=== PATIENT | female | born 2000 | race Caucasian/White ===

== ENCOUNTER 2023-08-06 06:24 | Day surgery (SDC) | payer OTHER, SELFPAY ==
[2023-08-06] VITALS (12 sets, daily range): BP systolic 115–134; BP diastolic 54–74; BMI 36.3
[2023-08-06] MEDS: TYLENOL 1000 MG PO (09:12)
[2023-08-06] MEDS: CELEBREX 200 MG PO (09:12)
[2023-08-06] MEDS: NORMOSOL-R 1000 IV (09:13)
[2023-08-06] MEDS: DILAUDID 0.25 MG IV (15:20)
[2023-08-06] MEDS: ROXICODONE 5 MG PO (16:12)
== END 2023-08-06 16:30 | disposition home or self-care (01) ==
LOC: SDS 06:24
PROVIDERS: ATTENDING PHYSICIAN Student in an Organized Health Care Education/Training Program
DX: T84.84XA Pain due to internal orthopedic prosthetic devices, implants and grafts, initial encounter (principal); Y83.1 Surgical operation with implant of artificial internal device as the cause of abnormal reaction of the patient, or of later complication, without mention of misadventure at the time of the procedure; M65.871 Other synovitis and tenosynovitis, right ankle and foot
CPT/HCPCS: 29898; 20680; 73600; 76000; C1713

== ENCOUNTER → 2024-02-26 05:49 | Outpatient (REF) | payer OTHER, SELFPAY | LOC: EMG 05:49 | PROVIDERS: ATTENDING PHYSICIAN Physician Assistant Surgical; FAMILY PHYSICIAN Family Medicine | DX: R20.2 Paresthesia of skin (principal); R53.1 Weakness | CPT/HCPCS: 95886; 95910 ==

== ENCOUNTER 2024-05-19 19:44 | Emergency (ER) | payer OTHER, SELFPAY ==
[2024-05-19 20:28] LABS: % Basophils 0.5 % (0-2); % Eosinophils 1.4 % (0-6); % Immature Granulocytes 0.5 % (0-0.5); % Lymphocytes 20.7 % (20.5-51.1); % Monocytes 9.4 % (1.7-9.3); % Neutrophils 67.5 % (42.2-75.2); Absolute Basophils 0.1 10^3/uL (0-0.2); Absolute Eosinophils 0.2 10^3/uL (0-0.7); Absolute Immature Granulocytes 0.1 10^3/uL (0-0.05); Absolute Lymphocytes 3.2 10^3/uL (1.2-3.4); Absolute Monocytes 1.4 10^3/uL (0.1-0.6); Absolute Neutrophils 10.3 10^3/uL (1.4-6.5); Hematocrit 44.8 % (39.0-52.0); Hemoglobin 15.2 g/dL (13.0-18.0); Mean Corp Hgb Conc. 33.9 g/dL (33.0-37.0); Mean Corpuscular Hgb 28.1 pg (27.0-31.0); Mean Platelet Volume 10.5 fL (7.4-10.4); Nucleated Red Blood Cells % 0 % (-); Platelet Count 352 10^3/uL (130-400); Red Cell Dist. Width 12.5 % (11.5-14.5); White Blood Cell Count 15.2 10^3/uL (4.8-10.8)
[2024-05-19 20:45] LABS: ALT (SGPT) 24 U/L (0-50); AST (SGOT) 25 U/L (17-59); Albumin 4.8 g/dl (3.5-5.0); Alkaline Phosphatase 74 U/L (38-126); Blood Urea Nitrogen 15 mg/dl (9-20); Calcium 9.5 mg/dl (8.4-10.2); Carbon Dioxide 28 mmol/L (22-30); Chloride 98 mmol/L (98-107); Glucose 76 mg/dl (70-99); Potassium 3.6 mmol/L (3.5-5.1); Sodium 137 mmol/L (135-145); Total Bilirubin 1.1 mg/dl (0.2-1.3); Total Protein 7.7 g/dl (6.3-8.2); eGFR > 60.00
[2024-05-19 20:52] LABS: Troponin I < 0.012 ng/ml
[2024-05-19 21:40] VITALS: BP 133/74
--- NOTE | 2024-05-19 22:47 | ED.GENMED ---
History of Present Illness
General
Chief Complaint: Chest Pain
Source: patient
Exam Limitations: none
Time Seen by Provider: 05/19/24 20:57
Nursing documentation reviewed up to this point in time: agreed with
History of Present Illness
History of Present Illness:
Patient to ED with complaint of chest pain. Symptom started this past week. No aggravating or alleviating factors. No n/v/diaphoresis. Brought self to ED for eval. Pain does not radiate
Past History
Past History
ED Past Medical History: None
Review of Systems
Review of Systems
Allergies reviewed?: Yes
All Other Systems: ROS reviewed and negative except as documented in HPI and ROS
Constitutional: Reports no symptoms
EENT: Reports no symptoms
Respiratory: Reports no symptoms
Cardiac: Reports chest pain
ABD/GI: Reports no symptoms
: Reports no symptoms
Musculoskeletal: Reports no symptoms
Skin: Reports no symptoms
Neurological: Reports no symptoms
Psychiatric: Reports no symptoms
Phy Exam
General Physical Exam
General Presentation: well appearing and no apparent distress
General age: appears stated age
General Skin: warm and dry
General Habitus: normal
General Mental: alert
Cardiovascular Exam
Cardiovascular Exam: regular rate/rhythm and no edema
Pulmonary Exam
Pulmonary Exam: no respiratory distress and chest non tender
Musculoskeletal Exam
Musculoskeletal Exam: full ROM and neuro vasc intact
Skin Exam
Skin Exam: normal color, warm/dry and no rash
Psychiatric Exam
Psychiatric Exam: normal mood/affect
Scores
Heart Score for Chest Pain Patients
STEMI patient?: Not applicable
Course
Orders/Labs/Results
Orders:
Orders
05/19/24 19:46
Electrocardiogram (*1) Urgent
Reason for Study: Chest Pain
EKG- Treatment ONCE
05/19/24 20:04
Complete Blood Count/With Diff Urgent
Comprehensive Metabolic Panel Urgent
Troponin I Urgent
05/19/24 21:00
CR Chest - 2 Views Urgent
Comment:
Reason For Exam: chest pain
Abnormal Lab Results
05/19/24
20:04
WBC 15.2 H 10^3/uL
(4.8-10.8)
MPV 10.5 H fL
(7.4-10.4)
Abs Immat Gran (auto) 0.1 H 10^3/uL
(0-0.05)
Absolute Neuts (auto) 10.3 H 10^3/uL
(1.4-6.5)
Absolute Monos (auto) 1.4 H 10^3/uL
(0.1-0.6)
Monocytes % 9.4 H %
(1.7-9.3)
05/19/24 20:04
05/19/24 20:04
Vital Signs
Initial and Last Documented VS:
Initial Vital Signs
Temp Pulse Resp Pulse Ox
98.3 F 93 18 97
05/19/24 19:56 05/19/24 19:56 05/19/24 19:56 05/19/24 19:56
Last Documented Vital Signs
Temp Pulse Resp BP Pulse Ox
98.3 F 91 18 133/74 99
05/19/24 19:56 05/19/24 21:40 05/19/24 21:40 05/19/24 21:40 05/19/24 21:40
*Radiology
Radiology exam reviewed: radiology read reviewed
*Pulse Oximetry
Patient hypoxic: no
*Critical Care Note
Total Time (30-74mins, 75-104mins- exclusive of procedures): Not Applicable
Update Note
Update Note:
Labs CXR EKG reviewed with patient. NO concerning findings on exam tonight. EKG normal, troponin neg, doubtful for ACS. Wils discharge home, follow up with PCP. Given instructions on s/s to return to ED and he is agreeable to plan.
ED Attending Note
-
Portions of this chart may have been created with voice recognition software.� Occasional wrong word or��sound alike� substitutions may have occurred due to the inherent limitations of voice recognition software.
Discharge Plan
Departure
Patient Disposition: Home (Routine Discharge)
Date of Disposition: 05/19/24
Time of Disposition: 21:36
Patient with high blood pressure during this ER visit?: No
Condition: Good
Covid-19: Not Applicable
Discharge Problem:
Chest pain
Instructions: Chest Pain That Is Not Caused by the Heart (DC)
Prescriptions:
No Action
duloxetine [Cymbalta] 20 mg Capsule,Delayed Release(Dr/Ec)
40 mg PO DAILY
testosterone
60 mg PO WEEKLY
Biktarvy 50-200-25 mg Tablet
1 tab PO DAILY
Referrals:
UNKNOWN - PT DOES,NOT KNOW [Family Provider] -
Activity Restrictions/Additional Instructions:
Follow up with your family doctor. Return to the emergency department for any changes in/worsening of your symptoms,
Interventions
Interventions:
*General Assessment Last Done: 05/19/24 21:00
ED- Fall Risk Assessment Last Done: 05/19/24 21:00
*Nursing Disposition Last Done: 05/19/24 21:42
ED- Pulmonary Assessment Last Done: 05/19/24 21:00
ED- Cardiac Assessment Last Done: 05/19/24 21:00
Discharge Date and Time
Discharge Date/Time: 05/19/24 22:10
Print Language: PORTUGUESE
== END 2024-05-19 22:10 | disposition home or self-care (01) ==
LOC: EMR 19:44
PROVIDERS: Nurse Practitioner; EMERGENCY PHYSICIAN Emergency Medicine
DX: R07.9 Chest pain, unspecified (principal)
CPT/HCPCS: 99285; 71046; 80053; 84484; 85025; 93005

== ENCOUNTER 2024-05-20 23:43 | Emergency (ER) | payer OTHER, SELFPAY ==
[2024-05-20 23:46] VITALS: BP 154/74
--- NOTE | 2024-05-21 00:20 | ED.GENMED ---
History of Present Illness
General
Chief Complaint: Chest Problem
Source: patient
Exam Limitations: none
Time Seen by Provider: 05/21/24 00:14
History of Present Illness
History of Present Illness:
See MDM
Past History
Past History
ED Past Medical History: None
ED Past Surgical History: None
Social History
Tobacco: Non-smoker
Alcohol: None
Phy Exam
Physical Exam
Physical Exam:
See MDM
Course
Orders/Labs/Results
Orders:
Orders
05/20/24 23:50
ECG [Electrocardiogram (*1)] Urgent
Reason for Study: Chest Pain
EKG- Treatment ONCE
05/21/24 00:20
CT Chest PE Study Urgent
Comment:
Reason For Exam: persistent chest pain
Vital Signs
Initial and Last Documented VS:
Initial Vital Signs
Temp Pulse Resp BP Pulse Ox
97.8 F 110 20 154/74 99
05/20/24 23:46 05/20/24 23:46 05/20/24 23:46 05/20/24 23:46 05/20/24 23:46
Last Documented Vital Signs
Temp Pulse Resp BP Pulse Ox
98.4 F 89 17 149/88 98
05/21/24 00:54 05/21/24 00:54 05/21/24 00:54 05/21/24 00:54 05/21/24 00:54
MDM/Problems Addressed
Differential Diagnosis Includes:
HPI and MDM Narrative:
24-year-old male presenting with persistent chest pain. He was seen yesterday and had a negative workup which included EKG, blood work and CXR. However, he returns because he 'does not feel right'. Patient acknowledges that he has tonsillectomy
in the near future and wanted to make sure that everything was okay. Given the tachycardia and persistent symptoms, will obtain CT PE
Physical exam
General: Well appearing and non-toxic
HEENT: protecting airway
Neck: appears supple
CV: No evidence of cyanosis. Tachycardic and regular
Resp: No accessory muscle use. Lungs clear
Abd: Non-distended
Extremities: No deformities. No leg edema or tenderness
Neuro: alert
Psych: Normal affect
Skin: Intact
Problems Addressed including Acute and Chronic Conditions affecting care:
1. Persistent chest pain
Acuity: acute
Prognosis: stable
Details: Given persistent symptoms, will obtain CT PE
Updates
CT negative for PE. There is evidence of possible bronchitis but he is already on steroids.
Differential Diagnosis (but not limited to): Noncardiac chest pain, anxiety, PE
Testing considered: Repeat blood work
Drug therapy (if applicable): OTC meds, please see d/c instruction regarding Rx drugs
Amount and/or Complexity of Data Reviewed
Clinical info obtained from: Patient
External data reviewed: N/A
Labs I independently reviewed (but not limited to): N/A
Radiology: The CT scan was personally and independently reviewed. In addition, official CT report reviewed.
Pulse Ox: not hypoxic
EKG independently reviewed: Sinus rhythm, normal axis, no STEMI
Upholstery Technician: Sinus rhythm
Critical Care: N/A
Risk of Complication:
Social Determinants of health: Good social support
Discussed with other providers: N/A
Escalation of Care includes Admit/Obs: After being observed in the Emergency Department, pt stable for discharge.
Occasional wrong word or 'sound a like' substitutions may have occurred due to the inherent limitations of voice recognition software. Read the chart carefully and recognize, using context, where substitutions have occurred.
*Critical Care Note
Total Time (30-74mins, 75-104mins- exclusive of procedures): Not Applicable
ED Attending Note
-
Portions of this chart may have been created with voice recognition software.� Occasional wrong word or��sound alike� substitutions may have occurred due to the inherent limitations of voice recognition software.
Discharge Plan
Departure
Patient Disposition: Home (Routine Discharge)
Date of Disposition: 05/21/24
Time of Disposition: 00:59
Patient with high blood pressure during this ER visit?: Yes
Discharge Problem:
Chest pain
Instructions: Chest Pain PCP Follow Up, BLOOD PRESSURE
Prescriptions:
New
albuterol sulfate 90 mcg/actuation HFA aerosol inhaler
2 puff inhalation Q6H PRN (Reason: shortness of breath or wheezing) Qty: 8.5 0RF
No Action
duloxetine [Cymbalta] 20 mg Capsule,Delayed Release(Dr/Ec)
40 mg PO DAILY
testosterone
60 mg PO WEEKLY
Biktarvy 50-200-25 mg Tablet
1 tab PO DAILY
Activity Restrictions/Additional Instructions:
Please return for any worsening symptoms.
You may return at any time if you have further concerns.
Please follow up with your doctor at the first available appointment, preferably this week.
Thank you for choosing [facility].
Interventions
Interventions:
*Risk Screen - Suicide Last Done: 05/21/24 00:56
*General Assessment Last Done: 05/21/24 00:56
*Neglect/Abuse Screening Last Done: 05/21/24 00:56
*ED COVID-19 Vaccine History Last Done: 05/21/24 00:56
ED- Cardiac Assessment Last Done: 05/21/24 00:57
ED- Pulmonary Assessment Last Done: 05/21/24 00:57
Discharge Date and Time
Print Language: SAMI
[2024-05-21 00:54] VITALS: BP 149/88
[2024-05-21 00:56] VITALS: BMI 38.8
--- NOTE | 2024-05-21 02:09 | DOWNTIME ---
There was a [employer] Client Tobacco Grader Downtime on 05/21/2024 from 0100 to 05/21/2024 at 0205 . Downtime documentation of patient's care, including medication administrations, has been reconciled in the electronic record per guidelines. Refer to the
patient's paper chart under the miscellaneous tab to see printed paper medication records and downtime forms.
== END 2024-05-21 01:20 | disposition home or self-care (01) ==
LOC: EMR 23:43
PROVIDERS: EMERGENCY PHYSICIAN Student in an Organized Health Care Education/Training Program; FAMILY PHYSICIAN Family Medicine
DX: R07.9 Chest pain, unspecified (principal); R00.0 Tachycardia, unspecified
CPT/HCPCS: 99284; 71275; 93005; Q9967